=== PATIENT | male | born 1985 | race Caucasian/White ===

== ENCOUNTER 2021-06-22 14:33 | Outpatient (CLI) | payer OTHER | END 2021-06-22 14:34 | disposition home or self-care (01) | LOC: SCSRAD 14:33 | PROVIDERS: ATTEND Nurse Practitioner Family | DX: R13.10 Dysphagia, unspecified (principal) | CPT/HCPCS: 71046 ==

== ENCOUNTER → 2022-09-19 | Outpatient (CLI) | payer OTHER | LOC: SLEEPLAB 17:30 | PROVIDERS: ATTEND Family Medicine | DX: G47.33 Obstructive sleep apnea (adult) (pediatric) (principal); R06.83 Snoring | CPT/HCPCS: 95800 ==